=== PATIENT | male | born 1980 | race African-American/Black ===

== ENCOUNTER 2024-02-01 16:09 | Outpatient (BNV) | payer OTHER, SELFPAY | END 2024-02-01 18:30 | PROVIDERS: Admitting Provider Psychiatry & Neurology Psychiatry; Visit Provider Internal Medicine Cardiovascular Disease | DX: Z51.81 Encounter for therapeutic drug level monitoring (principal) | CPT/HCPCS: 93010 ==

== ENCOUNTER 2024-02-01 16:09 | Inpatient (IN) | payer OTHER, SELFPAY ==
--- NOTE | 2024-02-01 | ECG_ITS ---
Test Reason : new admit Blood Pressure : / mmHG Vent. Rate : 085 BPM Atrial Rate : 085 BPM P-R Int : 172 ms QRS Dur : 080 ms QT Int : 354 ms P-R-T Axes : 060 021 053 degrees QTc Int : 421 ms Normal sinus rhythm Normal ECG No previous ECGs available Referred By: Lian Lopez Electronically Signed By:DANI APONTE MD
[2024-02-01 16:31] VITALS: BP 157/88; PULSE 80; RESP 18; TEMP 36.8; O2SAT 100
[2024-02-01 16:52] VITALS: BMI 35.4
--- NOTE | 2024-02-01 17:16 | PC.NURSE ---
Pt previously immunized for flu this year
--- NOTE | 2024-02-01 18:25 | PC.ADMIT ---
Pt was admitted from [facility] on M3 on 02/01/24 at 1625 for treatment of SI with an attempt by overdosing on clonidine and labetalol, as well as dish detergent and bleach , on a CV. He has a prior diagnosis of schizophrenia, per report from his father, he has been medication compliant. Per report from [facility], he had a sheet tied around his neck in an attempt to hang himself. He has a history of making verbal threats towards staff and being sexually inappropriate towards female staff. He has a history of incarceration and is a registered sex offender as of 2019. At present, pt is calm and cooperative with admission process. He is currently on dialysis for end stage renal disease and goes M-W-. He presents as A&O x4, mood is depressed and affect is constricted. He currently denies SI/HI/AVH. His thought process is clear and linear, he appears to have good focus. He denies issues with appetite or sleep. He reports daily use of marijuana, and his tox screen came back positive for marijuana. He does not report any physical complaints or other medical issues. He has a permacath on his R subclavian that is intact, with no signs of infection, and dressing was last changed on 01/27/24 by [facility]. He also has a fistula in his L upper arm which is no longer in use. Pt was placed on a 1:1 with male staff only due to recent SI with access and due to inappropriateness with females.
[2024-02-01 20:10] VITALS: BP 162/83; PULSE 80; RESP 18; TEMP 36.9; O2SAT 99
[2024-02-01] MEDS: OLANZapine 5 MG TABLET PO (20:47)
[2024-02-01] MEDS: Sevelamer Carbonate Powder 800 MG POWD.PACK 2400 MG PO (20:47)
[2024-02-01] MEDS: Labetalol HCL 100 MG TABLET PO (20:48)
[2024-02-01] MEDS: cloNIDine HCL 0.1 MG TABLET 0.3 MG PO (20:48)
--- NOTE | 2024-02-01 20:48 | P.EN_ITS ---
Event Note Date of Service: 02/01/24 Event Note: Patient accepted in transfer from [facility]. Doc to doc completed records reviewed. The patient is status post suicide attempt swallowing bleach no clear GI consequences from this the patient has been eating. The patient has end-stage renal disease has been receiving dialysis through port not fistula labs ekg unremarkable. The patient has been cooperative with dialysis at [facility] Patient has reported history of psychosis and paranoia question PTSD status post severe suicide attempt requires inpatient psychiatric care. Prior to transfer I did contact Nephrology who states they are able to provide dialysis care as required Time Spent With Patient Time: Total time managing care of this patient today ____ minutes.
[2024-02-02 07:45] VITALS: BP 165/91; PULSE 83; RESP 14; TEMP 36.8; O2SAT 98
[2024-02-02] MEDS: Labetalol HCL 100 MG TABLET PO ×3 (08:23→22:39)
[2024-02-02] MEDS: OLANZapine 5 MG TABLET PO ×3 (08:23→22:40)
[2024-02-02] MEDS: Valsartan 160 MG TABLET PO (08:23)
[2024-02-02] MEDS: Sevelamer Carbonate Powder 800 MG POWD.PACK 2400 MG PO ×2 (08:23→18:51)
[2024-02-02] MEDS: VerapamiL HCL SR 180 MG TABLET.ER PO (08:23)
[2024-02-02] MEDS: cloNIDine HCL 0.1 MG TABLET PO ×2 (08:23→22:28)
[2024-02-02] MEDS: Cinacalcet HCl 30 MG TABLET PO (09:13)
--- NOTE | 2024-02-02 11:34 | P.HPPS_ITS ---
HPI Date of Service: 02/02/24 Chief Complaint: Schizophrenia, unspecified Sources of Information: patient interviewed and chart reviewed HPI Subjective Notes: Conditional Voluntary Narrative: Direct admission from [facility] in [place]. As per Dr. Redd note 02/01/24: Patient accepted in transfer from [facility]. Doc to doc completed records reviewed. The patient is status post suicide attempt swallowing bleach no clear GI consequences from this the patient has been eating. The patient has end-stage renal disease has been receiving dialysis through port not fistula labs ekg unremarkable. The patient has been cooperative with dialysis at [facility] Patient has reported history of psychosis and paranoia question PTSD status post severe suicide attempt requires inpatient psychiatric care. Prior to transfer I did contact Nephrology who states they are able to provide dialysis care as required Paperwork from [facility] shows patient presented to the emergency room through 911 on 01/15/2024. There were 3 different accounts from patient, once stating he took labetalol and detergent ingestion, a 2nd stating clonidine and bleach ingestion, then a 3rd stating he drank alcohol and somebody had hypnotized him. Collateral from father at [facility], reported patient had relapsed with alcohol around 6 months ago, off medications, more paranoid, believes he may have called 911 himself. Patient was on the medical floor and received routine scheduled dialysis which she has been on for the last 3 years, while awaiting inpatient psychiatry bed. Olanzapine was increased during that medical floor stay from 10 mg daily to a total daily dose of 20 mg. Patient reports to senior copywriter today that he has been feeling depressed for years and that things got worse since 's Brenda when he started smoking more marijuana and getting paranoid. Reported prior to admission low energy, no motivation, poor sleep, hopelessness. Reported that he overdosed on pills and cleaning supplies impulsively and also drank some alcohol. Reported that he told a friend who called 911. is adamant it was not a suicide attempt and was self harm/cry for help. reports does feel paranoid at times that family members are trying to hurt him and also hallucinates hearing rap music and things that are normally on a television. Reports that Zyprexa is helpful and these have become less intense. Happy regarding current medication regimen of Zyprexa 5 mg morning and 50 mg at bedtime. Reluctant to make any current changes. Past Psychiatric History: Diagnosis of schizoaffective disorder. Unclear if there are any hypomanic episodes in the past. Does describe clear depressive episodes. Auditory hallucinations and paranoia. Reports history of overdosing on medications but describes them as more of a cry for help, rather than suicide attempts. Prior to this overdose, the last was in 2012 in front of his children's mother. Reports last inpatient episode was around 3 years ago when he was informed around the need for dialysis in the context of polycystic kidney disease. Cannot remember medication regimen in the past. Unclear recent treaters. Never been on clozapine or ECT. Medical Evaluation Reviewed: Hospitalist Dalia Pending [facility] Narrative: Polycystic kidney disease and dialysis Wednesdays and Fridays at the [facility] on [address] [place] [address] in [facility] on Social History: lives alone in [place]. High school grad. 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 has been living alone since September 28 in a 1 bedroom apartment. Prior to that was in Community supportive housing for 3 years. in 2016 after 5 years. Has 2 children that are twins age 12 and unsure where they currently are but thinks he might be a new hamster and had last contact when their age 4. No active legal issues. Was on probation from 2009 through 2012 for possession of drugs and incarcerated 2003 through 2005 for assault and battery with a deadly weapon. Substance History: Alcohol use disorder. Diagnostics Vital Signs (24Hr): Vital Signs - 24 hr 02/01/24 16:31 02/01/24 20:10 02/02/24 07:45 Temperature 98.3 F 98.5 F 98.3 F Pulse Rate 80 80 83 Respiratory Rate 18 18 14 Blood Pressure 157/88 H 162/83 H 165/91 H Pulse Oximetry 100 99 98 Oxygen Delivery Method Room Air Room Air Room Air BMI result Body Mass Index 35.4 Labs 02/02/24 11:12 Meds/Allergies Meds Home Medications ?Medication ?Instructions ?Recorded ?Confirmed ?Type cinacalcet 1 tab PO DAILY 02/01/24 02/01/24 History clonidine HCl 0.3 mg tablet 0.3 mg PO BID 02/01/24 02/01/24 History epoetin ceci-epbx 10,000 unit/mL 10,000 unit subcut 3XW 02/01/24 02/01/24 History injection solution irbesartan 300 mg tablet 300 mg PO DAILY 02/01/24 02/01/24 History labetalol 100 mg tablet 100 mg PO BID 02/01/24 02/01/24 History olanzapine 5 mg tablet 5 mg PO BID 02/01/24 02/01/24 History sevelamer carbonate 2.4 gram oral 2.4 g PO TID 02/01/24 02/01/24 History powder packet (Renvela) verapamil 180 mg tablet,extended 180 mg PO DAILY 02/01/24 02/01/24 History release Allergies Allergies Allergy/AdvReac Type Severity Reaction Status Date / Time fish derived [fish] Allergy Unknown Verified 02/01/24 16:49 haloperidol [From Haldol] Allergy Unknown Verified 02/01/24 16:49 peanut Allergy Unknown Verified 02/01/24 16:49 promethazine [From Phenergan] Allergy Unknown Verified 02/01/24 16:49 shellfish derived Allergy Unknown Verified 02/01/24 16:49 Mental Status Exam Mental Status Exam Narrative: Had a towel over his head. He was slightly guarded and at times oddly interacting. Self-care okay. Organized. Endorses feeling depressed but getting better. Denied current SI. No HI. No agitation. Endorsed intermittent paranoia and hallucinations, that are non command and less intense than a couple weeks ago. Insight judgment fair Assessment & Plan Assessment & Plan (1) Schizoaffective disorder: Status: Acute Code(s): F25.9 - Schizoaffective disorder, unspecified Plan Direct admission from a medical floor at [facility] in [facility], following unclear overdose on 01/15/2024. Established dialysis patient on Wednesdays and Fridays. It appears has been off psychotropic medications as per collateral from paperwork. Does appear to be benefiting from adjustment in olanzapine dose to 5 mg morning and 15 mg at bedtime. Given same will not make any changes and patient also prefers this. We will continue dialysis on Wednesdays and Fridays. Patient educated on: diagnosis and medication risk/benefits Reason for continued inpatient stay Substantial Risk for: harm to self Statement Statement: I have reviewed the history and physical and performed a pertinent examination on my patient. No changes have occurred unless specified. If the History and Physical was not performed prior to admission, the Hospitalist's service will be consulted for completing the admission physical. Time Spent With Patient Time: Total time managing care of this patient today ____ minutes.
[2024-02-02] MEDS: Nicotine Polacrilex 2 MG GUM 4 MG BUCCAL ×3 (11:42→22:49)
[2024-02-02 12:16] LABS: Alanine Aminotransferase 11 U/L (0-40); Albumin Level 4.3 g/dL (3.5-5.0); Alkaline Phosphatase 81 U/L (39-117); Anion Gap 21 (12-20); Aspartate Amino Transferase 19 U/L (5-37); Bilirubin Total 0.4 mg/dL (0.0-1.0); Blood Urea Nitrogen 48 mg/dL (9-16); Calcium 9.5 mg/dL (8.4-10.2); Carbon Dioxide 26 mmol/L (22-29); Chloride 93 mmol/L (96-108); Cholesterol 175 mg/dL (<200); Creatinine Clr Calc Pharmacy 9.3; Estimated Glomerular Filt Rate 4; Glucose Fasting 108 mg/dL (60-99); HDL Cholesterol 34 mg/dL (>40); LDL Cholesterol Calculated 116 mg/dL (<100); Potassium 5.8 mmol/L (3.3-5.1); Sodium 134 mmol/L (135-145); Total Protein 7.4 g/dL (6.5-8.0); Triglycerides 129 mg/dL (<150)
[2024-02-02] MEDS: Cinacalcet HCl 30 MG TABLET 60 MG PO (13:30)
--- NOTE | 2024-02-02 13:57 | HO.PM.IMCN ---
History of Present Illness Data of Consult Service Date: 02/02/24 Primary Care Provider: Unknown Physician HPI Reason for consult: Admission H&P Pt is a 43-year-old male with a PMH significant for?HTN, ESRD on hemodialysis M/W/F, schizoaffective disorder, and depression who is admitted to M3 psychiatry unit for increasing depression with SI attempt at overdose on clonidine, labetalol, wet washer machine detergent, and bleach. Medical consult for admission H&P. Patient calm and cooperative at time of interview. Patient often displaced tangential thought, but is mostly easy to redirect. Patient expresses concerns that dialysis ?needs to be done right?; appears very concerned that the ?correct amount of fluid be take off him. Patient denies any significant PMH other than dialysis and HTN. Currently denies any acute medical complaints, saying that he feels ?okay?. Denies lower leg edema or abdominal swelling. No chest pain/pressure, palpitations. Denies fever, chills, nausea, vomiting, abdominal pain. No headache or acute vision changes. Review of Systems Review of Systems: Patient has no acute medical complaints at this time [facility] Medical History (Updated 02/02/24 @ 17:46 by SUZY Garcia) HTN (hypertension) End-stage renal disease on hemodialysis Social History Household Members: None Housing: Apartment Do you presently have visiting nurse or other home services: No Patient Tobacco Use Status: Former Tobacco user Quit Date: 01/13/24 Tobacco use type: Cigarette Smoked in Last 30 Days: Yes e-Cigarette/Vaping Use: Never Used Patient Interested in Nicotine Replacement: No Patient Given Instructions on How to Stop Smoking: No Second Hand Smoke Exposure: No Use of substances other than those prescribed or required for medical reasons: Yes Substance Use Type: Marijuana Substance Use Frequency: Chronic Longstanding Last Used Substance: Just Prior to Admission Currently Displaying Signs/Symptoms of Drug Intoxication Withdrawal: No Any prior treatment program specific to substance use: No Have you been hit, kicked, punched, or otherwise hurt by someone within the past year? If so, by whom?: No Do you feel safe in your current relationship?: No Current Relationship Is there a partner from a previous relationship who is making you feel unsafe now?: No Are you made to feel afraid or neglected: No Advance Directives: No Advance Directives Information Provided: No Do you have thoughts of harming others: None Do you have a plan to hurt others: No Plan Recently lost weight without trying: No How much weight loss: Not applicable Eating poorly because of decreased appetite: No Nutrition screen score: 0 Nutrition Risks: No Nutritional Risk Poor oral hygiene: No Meds Allergies Allergy/AdvReac Type Severity Reaction Status Date / Time fish derived [fish] Allergy Unknown Verified 02/01/24 16:49 haloperidol [From Haldol] Allergy Unknown Verified 02/01/24 16:49 peanut Allergy Unknown Verified 02/01/24 16:49 promethazine [From Phenergan] Allergy Unknown Verified 02/01/24 16:49 shellfish derived Allergy Unknown Verified 02/01/24 16:49 Active Medications: Current Medications Acetaminophen (Acetaminophen 325 Mg Tablet) 650 mg PO Q6H PRN PRN Reason: Headache/Pain Mild Scale (1-3) Al Hydroxide/Mg Hydroxide (Magnesium Hydrox/Alum Hydrox 30 Ml Oral.Susp) 30 ml PO Q6H PRN PRN Reason: Heartburn/Nausea Cinacalcet (Cinacalcet Hcl 30 Mg Tablet) 90 mg PO DAILY [facility] Clonidine HCl (Clonidine Hcl 0.1 Mg Tablet) 0.1 mg PO BID [facility]; Protocol Last Admin: 02/02/24 08:23 Dose: 0.1 mg Epoetin Jorge Luis (Epoetin Jorge Luis 10,000 Unit/Ml Vial) 10,000 unit SUBCUT MoWeFr@0900 [facility] Hydroxyzine HCl (Hydroxyzine Hcl 25 Mg Tablet) 25 mg PO Q6H PRN PRN Reason: Anxiety Labetalol HCl (Labetalol Hcl 100 Mg Tablet) 100 mg PO BID [facility]; Protocol Last Admin: 02/02/24 08:23 Dose: 100 mg Magnesium Hydroxide (Milk Of Magnesia 30 Ml Oral.Susp) 30 ml PO DAILY PRN PRN Reason: Constipation Nicotine Polacrilex (Nicotine Polacrilex 2 Mg Gum) 4 mg BUCCAL Q2H PRN PRN Reason: Nicotine Cravings Last Admin: 02/02/24 11:42 Dose: 4 mg Olanzapine (Olanzapine 5 Mg Tablet) 5 mg PO BID [facility] Last Admin: 02/02/24 08:23 Dose: 5 mg Sevelamer Carbonate (Sevelamer Carbonate Powder 800 Mg Powd.Pack) 2,400 mg PO TID [facility] Last Admin: 02/02/24 08:23 Dose: 2,400 mg Trazodone HCl (Trazodone Hcl 50 Mg Tablet) 50 mg PO BEDTIME MRX1 PRN PRN Reason: Insomnia Valsartan (Valsartan 160 Mg Tablet) 160 mg PO DAILY [facility] Last Admin: 02/02/24 08:23 Dose: 160 mg Verapamil HCl (Verapamil Hcl Sr 180 Mg Tablet.Er) 180 mg PO DAILY [facility]; Protocol Last Admin: 02/02/24 08:23 Dose: 180 mg Home Medications ?Medication ?Instructions ?Recorded ?Confirmed ?Last Taken ?Type cinacalcet 1 tab PO DAILY 02/01/24 02/01/24 Unknown History clonidine HCl 0.3 mg tablet 0.3 mg PO BID 02/01/24 02/01/24 Unknown History epoetin jorge luis-epbx 10,000 unit/mL 10,000 unit subcut 3XW 02/01/24 02/01/24 Unknown History injection solution irbesartan 300 mg tablet 300 mg PO DAILY 02/01/24 02/01/24 Unknown History labetalol 100 mg tablet 100 mg PO BID 02/01/24 02/01/24 Unknown History olanzapine 5 mg tablet 5 mg PO BID 02/01/24 02/01/24 Unknown History sevelamer carbonate 2.4 gram oral 2.4 g PO TID 02/01/24 02/01/24 Unknown History powder packet (Renvela) verapamil 180 mg tablet,extended 180 mg PO DAILY 02/01/24 02/01/24 Unknown History release Physical Exam Vital Signs and Narrative: Vital Signs: Last Vital Signs Temp 98.3 F 02/02/24 07:45 Pulse 83 02/02/24 07:45 Resp 14 02/02/24 07:45 BP 165/91 H 02/02/24 07:45 Pulse Ox 98 02/02/24 07:45 O2 Del Method Room Air 02/02/24 07:45 BMI result Body Mass Index 35.4 General: AOx3, no acute distress Resp: CTA bilaterally CVS: S1, S2, RRR GI: +BS, NT, no distention Skin: Warm, dry Neuro: Cranial nerves II-XII grossly intact bilaterally. Motor grossly intact bilaterally Extremities: No edema Results Labs 02/02/24 11:12 Labs: Laboratory Results - last 24 hr 02/02/24 11:12 Anion Gap 21 H Estim Creat Clear Calc 9.3 Estimated GFR 4 Fasting Glucose 108 H Calcium 9.5 Total Bilirubin 0.4 AST 19 ALT 11 Alkaline Phosphatase 81 Total Protein 7.4 Albumin 4.3 Triglycerides 129 Cholesterol 175 LDL Cholesterol, Calc 116 H HDL Cholesterol 34 L Assessment and Plan (1) Medical clearance for psychiatric admission: Status: Acute Plan Pt is a 43-year-old male with a PMH significant for?HTN, ESRD on hemodialysis M/W/F, schizoaffective disorder, and depression who is admitted to M3 psychiatry unit for increasing depression with SI attempt at overdose on clonidine, labetalol, wet washer machine detergent, and bleach. Medical consult for admission H&P. Mood disorder Plan as per Psychiatry HTN Continue irbesartan, labetalol, verapamil ESRD on HD M/W/F Continue cinacalcet, Renvela, epoetin Nephrology consult Hyperkalmemia Potassium 5.8 Will give Lokelma 10mg today and tomorrow Thank you for allowing us to participate in the care of this patient. Signing off at this time. Please re-consult if any acute complaints or issues arise.
[2024-02-02 20:30] VITALS: RESP 18
--- NOTE | 2024-02-02 21:30 | PM.EVENT ---
Event Note Date of Service: 02/02/24 Time Spent With Patient Time: Thank you for the consult. All EMR details reviewed. Due HD Sunday. HD ordered for Sunday. Shall closely follow up during hospital stay. Wali Marcial MD
[2024-02-02] MEDS: guaiFENesin 100 MG/5 ML LIQUID PO (22:39)
--- NOTE | 2024-02-03 05:45 | PC.NURSE ---
R subclavian perma cath-late evening patient removed dressing and was pulling at sutures that secure catheter to chest. one suture remains. focused on ''pulling out the catheter, I've done it before'' required distraction to prevent the pulling of the tubing. patient also making delusional statement about his family making a ''time machine'' that his uncle and father were stealing his belongings at his home because he could ''read their minds'' it was difficult to get patient to allow a dressing to be place, non central dsd applied, but was able to cover area to prevent further damage. central sterile line dsd kit obtained as well as pressure dsd in the event patient did pull line. continued with focus about line. observer remains at side.
[2024-02-03 08:20] VITALS: BP 179/101; PULSE 87; RESP 14; TEMP 36.8; O2SAT 95
[2024-02-03] MEDS: Nicotine Polacrilex 2 MG GUM 4 MG BUCCAL ×3 (08:20→23:54)
[2024-02-03] MEDS: Valsartan 160 MG TABLET PO (09:11)
[2024-02-03] MEDS: VerapamiL HCL SR 180 MG TABLET.ER PO (09:11)
[2024-02-03] MEDS: Labetalol HCL 100 MG TABLET PO ×2 (09:11→20:51)
[2024-02-03] MEDS: OLANZapine 5 MG TABLET PO ×2 (09:11→13:35)
[2024-02-03] MEDS: Cinacalcet HCl 30 MG TABLET 90 MG PO (09:11)
[2024-02-03] MEDS: cloNIDine HCL 0.1 MG TABLET PO ×2 (09:11→20:51)
[2024-02-03] MEDS: Sevelamer Carbonate Powder 800 MG POWD.PACK 2400 MG PO (09:15)
[2024-02-03 10:57] VITALS: BP 178/84; PULSE 95
--- NOTE | 2024-02-03 12:08 | P.PNPSI_ITS ---
Subjective Subjective Date of Service: 02/03/24 Reason For Visit: Schizophrenia, unspecified Subjective Notes: Conditional Voluntary Medical Problems Affecting Mental Status: No Interim History: Met with patient. Discussed with Nursing. Partial adherence around medical medications such as labetalol. Has appeared more paranoid as the day went on yesterday and last night. This morning has been self dialogue going. Slept poorly last night. Aware dialysis scheduled for tomorrow. We did discuss medical medications so to help with things such as blood pressure etc. and agreed to take same, which he did. Also agreed to olanzapine being increased to 10 mg daily and 15 mg at bedtime. Medication Compliance: Intermittent Side effects from medications: No Attending Groups: No Review of Systems Acute medical concerns: No Review of Systems Review of Systems Patient has no acute medical complaints at this time Mental Status Exam Mental Status Exam Narrative: He was guarded and at times oddly interacting. Self-care okay. Organized. Endorses feeling depressed. Denied current SI. No HI. No agitation. Endorsed intermittent paranoia and hallucination. Insight judgment fair Diagnostics Vital Signs (24Hr): Vital Signs - 24 hr 02/02/24 20:30 02/03/24 08:20 02/03/24 10:57 Temperature 98.2 F Pulse Rate 87 95 Respiratory Rate 18 14 Blood Pressure 179/101 H 178/84 H Pulse Oximetry 95 Oxygen Delivery Method Room Air BMI result Body Mass Index 35.4 Labs 02/02/24 11:12 Labs: Laboratory Results - last 48 hr 02/02/24 11:12 Sodium 134 L Potassium 5.8 H Chloride 93 L Carbon Dioxide 26 Anion Gap 21 H BUN 48 H Creatinine 13.34 H* Estim Creat Clear Calc 9.3 Estimated GFR 4 Fasting Glucose 108 H Calcium 9.5 Total Bilirubin 0.4 AST 19 ALT 11 Alkaline Phosphatase 81 Total Protein 7.4 Albumin 4.3 Triglycerides 129 Cholesterol 175 LDL Cholesterol, Calc 116 H HDL Cholesterol 34 L Medications Medications Current Medications Acetaminophen (Acetaminophen 325 Mg Tablet) 650 mg PO Q6H PRN PRN Reason: Headache/Pain Mild Scale (1-3) Al Hydroxide/Mg Hydroxide (Magnesium Hydrox/Alum Hydrox 30 Ml Oral.Susp) 30 ml PO Q6H PRN PRN Reason: Heartburn/Nausea Cinacalcet (Cinacalcet Hcl 30 Mg Tablet) 90 mg PO DAILY [facility] Last Admin: 02/03/24 09:11 Dose: 90 mg Clonidine HCl (Clonidine Hcl 0.1 Mg Tablet) 0.1 mg PO BID [facility]; Protocol Last Admin: 02/03/24 09:11 Dose: 0.1 mg Epoetin Jorge Luis (Epoetin Jorge Luis 10,000 Unit/Ml Vial) 10,000 unit SUBCUT MoWeFr@0900 [facility] Guaifenesin (Guaifenesin 100 Mg/5 Ml Liquid) 5 ml PO Q6H PRN PRN Reason: Cough Last Admin: 02/02/24 22:39 Dose: 5 ml Hydroxyzine HCl (Hydroxyzine Hcl 25 Mg Tablet) 25 mg PO Q6H PRN PRN Reason: Anxiety Labetalol HCl (Labetalol Hcl 100 Mg Tablet) 100 mg PO BID [facility]; Protocol Last Admin: 02/03/24 09:11 Dose: 100 mg Lidocaine HCl (Lidocaine Hcl 1 % Mpf 2 Ml Vial) 0.5 ml SUBCUT MOWEFR@1645 [facility] Magnesium Hydroxide (Milk Of Magnesia 30 Ml Oral.Susp) 30 ml PO DAILY PRN PRN Reason: Constipation Nicotine Polacrilex (Nicotine Polacrilex 2 Mg Gum) 4 mg BUCCAL Q2H PRN PRN Reason: Nicotine Cravings Last Admin: 02/03/24 08:20 Dose: 4 mg Olanzapine (Olanzapine 5 Mg Tablet) 5 mg PO BID [facility] Last Admin: 02/03/24 09:11 Dose: 5 mg Sevelamer Carbonate (Sevelamer Carbonate Powder 800 Mg Powd.Pack) 2,400 mg PO TIDWM [facility] Last Admin: 02/03/24 09:15 Dose: 2,400 mg Sodium Zirconium Cyclosilicate (Sodium Zirconium Cyclosilicate 10 Gm Powd.Pack) 10 gm PO DAILY@2200 [facility] Stop: 02/04/24 21:59 Last Admin: 02/02/24 20:23 Dose: Not Given Trazodone HCl (Trazodone Hcl 50 Mg Tablet) 50 mg PO BEDTIME MRX1 PRN PRN Reason: Insomnia Valsartan (Valsartan 160 Mg Tablet) 160 mg PO DAILY [facility] Last Admin: 02/03/24 09:11 Dose: 160 mg Verapamil HCl (Verapamil Hcl Sr 180 Mg Tablet.Er) 180 mg PO DAILY [facility]; Protocol Last Admin: 02/03/24 09:11 Dose: 180 mg Allergies Allergies Allergy/AdvReac Type Severity Reaction Status Date / Time fish derived [fish] Allergy Unknown Verified 02/01/24 16:49 haloperidol [From Haldol] Allergy Unknown Verified 02/01/24 16:49 peanut Allergy Unknown Verified 02/01/24 16:49 promethazine [From Phenergan] Allergy Unknown Verified 02/01/24 16:49 shellfish derived Allergy Unknown Verified 02/01/24 16:49 Assessment & Plan Assessment & Plan (1) Schizoaffective disorder: Status: Acute Code(s): F25.9 - Schizoaffective disorder, unspecified (2) End stage renal disease on dialysis: Status: Acute Code(s): N18.6 - End stage renal disease; Z99.2 - Dependence on renal dialysis Plan Direct admission from a medical floor at [facility] in [facility], following unclear overdose on 01/15/2024. Established dialysis patient on Wednesdays and Fridays. It appears has been off psychotropic medications as per collateral from paperwork. Does appear to be benefiting from adjustment in olanzapine dose to 5 mg morning and 15 mg at bedtime. Given same will not make any changes and patient also prefers this. We will continue dialysis on Wednesdays and Fridays. 02/02: increase olanzapine to 10mg am and maintain 15g bedtime Reason for continued inpatient stay Substantial Risk for: inability to function Time Spent With Patient Time: Total time managing care of this patient today ____ minutes.
[2024-02-03 20:45] VITALS: BP 158/83; PULSE 78; RESP 18; TEMP 35.9; O2SAT 100
[2024-02-03] MEDS: OLANZapine 7.5 MG TABLET 15 MG PO (20:51)
[2024-02-04 06:00] VITALS: BP 161/83; PULSE 78; RESP 18
[2024-02-04] MEDS: Nicotine Polacrilex 2 MG GUM 4 MG BUCCAL ×3 (07:02→18:50)
[2024-02-04 07:53] VITALS: BP 148/64; PULSE 79; RESP 16; TEMP 36.7; O2SAT 99
--- NOTE | 2024-02-04 08:53 | P.PNPSI_ITS ---
Subjective Subjective Date of Service: 02/04/24 Reason For Visit: Schizophrenia, unspecified Subjective Notes: Conditional Voluntary Interim History: Reviewed with Dr. Redd. Pt continues on 1:1 safety checks. Pt received dialysis today. Pt reports feeling depressed ; pt stated, I overdosed on cleaning products because I miss my kids. It's been a while since I've seen them. I was taking Zyprexa before but then I started self medicating. I want to stay alive for my kids and the rest of my family . pt denies SI/HI/VH/AH. Medication Compliance: Yes Side effects from medications: No Review of Systems Constitutional: Reports as per HPI Eyes: Reports as per HPI Reports as per HPI Cardiovascular: Reports as per HPI Respiratory: Reports as per HPI Gastrointestinal: Reports as per HPI Genitourinary: Reports as per HPI Musculoskeletal: Reports as per HPI Skin/Breast: Reports as per HPI Reports as per HPI Psychiatric: Reports as per HPI Endocrine: Reports as per HPI Hematologic/Lymphatic: Reports as per HPI Allergic/Immunologic: Reports as per HPI Mental Status Exam Mental Status Exam Narrative: Pt is alert and oriented; behavior is cooperative and calm; mood is described as depressed ; eye contact appropriate; Speech is normal rate, volume and prosody and not pressured; thought process is organized; Thought content is on tx; denies SI/HI/VH/AH. Diagnostics Vital Signs (24Hr): Vital Signs - 24 hr 02/03/24 10:57 02/03/24 20:45 02/04/24 06:00 Temperature 96.7 F L Pulse Rate 95 78 78 Respiratory Rate 18 18 Blood Pressure 178/84 H 158/83 H 161/83 H Pulse Oximetry 100 Oxygen Delivery Method Room Air 02/04/24 07:53 Temperature 98.1 F Pulse Rate 79 Respiratory Rate 16 Blood Pressure 148/64 H Pulse Oximetry 99 Oxygen Delivery Method Room Air BMI result Body Mass Index 35.4 Labs 02/02/24 11:12 Labs: Laboratory Results - last 48 hr 02/02/24 11:12 Sodium 134 L Potassium 5.8 H Chloride 93 L Carbon Dioxide 26 Anion Gap 21 H BUN 48 H Creatinine 13.34 H* Estim Creat Clear Calc 9.3 Estimated GFR 4 Fasting Glucose 108 H Calcium 9.5 Total Bilirubin 0.4 AST 19 ALT 11 Alkaline Phosphatase 81 Total Protein 7.4 Albumin 4.3 Triglycerides 129 Cholesterol 175 LDL Cholesterol, Calc 116 H HDL Cholesterol 34 L Medications Medications Current Medications Acetaminophen (Acetaminophen 325 Mg Tablet) 650 mg PO Q6H PRN PRN Reason: Headache/Pain Mild Scale (1-3) Al Hydroxide/Mg Hydroxide (Magnesium Hydrox/Alum Hydrox 30 Ml Oral.Susp) 30 ml PO Q6H PRN PRN Reason: Heartburn/Nausea Cinacalcet (Cinacalcet Hcl 30 Mg Tablet) 90 mg PO DAILY [facility] Last Admin: 02/03/24 09:11 Dose: 90 mg Clonidine HCl (Clonidine Hcl 0.1 Mg Tablet) 0.1 mg PO BID [facility]; Protocol Last Admin: 02/03/24 20:51 Dose: 0.1 mg Epoetin Jorge Luis (Epoetin Jorge Luis 10,000 Unit/Ml Vial) 10,000 unit SUBCUT MoWeFr@0900 [facility] Guaifenesin (Guaifenesin 100 Mg/5 Ml Liquid) 5 ml PO Q6H PRN PRN Reason: Cough Last Admin: 02/02/24 22:39 Dose: 5 ml Hydroxyzine HCl (Hydroxyzine Hcl 25 Mg Tablet) 25 mg PO Q6H PRN PRN Reason: Anxiety Labetalol HCl (Labetalol Hcl 100 Mg Tablet) 100 mg PO BID [facility]; Protocol Last Admin: 02/03/24 20:51 Dose: 100 mg Lidocaine HCl (Lidocaine Hcl 1 % Mpf 2 Ml Vial) 0.5 ml SUBCUT MOWEFR@1645 [facility] Magnesium Hydroxide (Milk Of Magnesia 30 Ml Oral.Susp) 30 ml PO DAILY PRN PRN Reason: Constipation Nicotine Polacrilex (Nicotine Polacrilex 2 Mg Gum) 4 mg BUCCAL Q2H PRN PRN Reason: Nicotine Cravings Last Admin: 02/04/24 07:02 Dose: 4 mg Olanzapine (Olanzapine 10 Mg Tablet) 10 mg PO DAILY [facility] Olanzapine (Olanzapine 7.5 Mg Tablet) 15 mg PO BEDTIME [facility] Last Admin: 02/03/24 20:51 Dose: 15 mg Sevelamer Carbonate (Sevelamer Carbonate Powder 800 Mg Powd.Pack) 2,400 mg PO TIDWM [facility] Last Admin: 02/03/24 18:13 Dose: Not Given Sodium Zirconium Cyclosilicate (Sodium Zirconium Cyclosilicate 10 Gm Powd.Pack) 10 gm PO DAILY@2200 [facility] Stop: 02/04/24 21:59 Last Admin: 02/03/24 21:48 Dose: Not Given Trazodone HCl (Trazodone Hcl 50 Mg Tablet) 50 mg PO BEDTIME MRX1 PRN PRN Reason: Insomnia Valsartan (Valsartan 160 Mg Tablet) 160 mg PO DAILY [facility] Last Admin: 02/03/24 09:11 Dose: 160 mg Verapamil HCl (Verapamil Hcl Sr 180 Mg Tablet.Er) 180 mg PO DAILY [facility]; Protocol Last Admin: 02/03/24 09:11 Dose: 180 mg Allergies Allergies Allergy/AdvReac Type Severity Reaction Status Date / Time fish derived [fish] Allergy Unknown Verified 02/01/24 16:49 haloperidol [From Haldol] Allergy Unknown Verified 02/01/24 16:49 peanut Allergy Unknown Verified 02/01/24 16:49 promethazine [From Phenergan] Allergy Unknown Verified 02/01/24 16:49 shellfish derived Allergy Unknown Verified 02/01/24 16:49 Assessment & Plan Assessment & Plan (1) Schizoaffective disorder: Status: Acute Code(s): F25.9 - Schizoaffective disorder, unspecified (2) End stage renal disease on dialysis: Status: Acute Code(s): N18.6 - End stage renal disease; Z99.2 - Dependence on renal dialysis Plan Direct admission from a medical floor at [facility] in [facility], following unclear overdose on 01/15/2024. Established dialysis patient on Wednesdays and Fridays. It appears has been off psychotropic medications as per collateral from paperwork. Does appear to be benefiting from adjustment in olanzapine dose to 5 mg morning and 15 mg at bedtime. Given same will not make any changes and patient also prefers this. We will continue dialysis on Wednesdays and Fridays. 02/02: increase olanzapine to 10mg am and maintain 15g bedtime 02/03:Pt continues on 1:1 safety checks. Pt received dialysis today. Pt reports feeling depressed ; pt stated, I overdosed on cleaning products because I miss my kids. It's been a while since I've seen them. I was taking Zyprexa before but then I started self medicating. I want to stay alive for my kids and the rest of my family . pt denies SI/HI/VH/AH. Patient educated on: diagnosis and medication risk/benefits Informed Consent: understands Reason for continued inpatient stay Substantial Risk for: med/psych decompensation Time Spent With Patient Time: Total time managing care of this patient today _20___ minutes.
--- NOTE | 2024-02-04 10:21 | P.CONNP_ITS ---
History of Present Illness Reason for Consult Consult date: 02/04/24 Chief Complaint Chief complaint: Schizophrenia, unspecified History of Present Illness Narrative: 43-year-old man with end stage renal disease due to polycystic kidney disease Usually gets dialysis at at [facility] on Fridays He is due for dialysis today. He has been admitted to the psychiatric floor for psychiatric issues Review of Systems Constitutional: Denies anorexia, Denies fever(s) and Denies weakness Eyes: Denies blurry vision Cardiovascular: Denies no additional cardiovascular complaints and Denies dyspnea Respiratory: Reports no additional respiratory complaints, Reports cough and Denies dyspnea Gastrointestinal: Denies melena and Denies diarrhea Genitourinary: Denies hematuria Musculoskeletal: Denies tingling Skin/Breast: Denies rash Denies focal weakness, Denies tingling, Denies tremor(s) and Denies weakness PMFSH Past Medical History Medical History (Updated 02/03/24 @ 15:42 by Josh Busch MD) HTN (hypertension) End-stage renal disease on hemodialysis Social History Social History Household Members: None Housing: Apartment Do you presently have visiting nurse or other home services: No Patient Tobacco Use Status: Former Tobacco user Quit Date: 01/13/24 Tobacco use type: Cigarette Smoked in Last 30 Days: Yes e-Cigarette/Vaping Use: Never Used Patient Interested in Nicotine Replacement: No Patient Given Instructions on How to Stop Smoking: No Second Hand Smoke Exposure: No Use of substances other than those prescribed or required for medical reasons: Yes Substance Use Type: Marijuana Substance Use Frequency: Chronic Longstanding Last Used Substance: Just Prior to Admission Currently Displaying Signs/Symptoms of Drug Intoxication Withdrawal: No Any prior treatment program specific to substance use: No Have you been hit, kicked, punched, or otherwise hurt by someone within the past year? If so, by whom?: No Do you feel safe in your current relationship?: No Current Relationship Is there a partner from a previous relationship who is making you feel unsafe now?: No Are you made to feel afraid or neglected: No Advance Directives: No Advance Directives Information Provided: No Do you have thoughts of harming others: None Do you have a plan to hurt others: No Plan Recently lost weight without trying: No How much weight loss: Not applicable Eating poorly because of decreased appetite: No Nutrition screen score: 0 Nutrition Risks: No Nutritional Risk Poor oral hygiene: No Meds Allergies Allergy/AdvReac Type Severity Reaction Status Date / Time fish derived [fish] Allergy Unknown Verified 02/01/24 16:49 haloperidol [From Haldol] Allergy Unknown Verified 02/01/24 16:49 peanut Allergy Unknown Verified 02/01/24 16:49 promethazine [From Phenergan] Allergy Unknown Verified 02/01/24 16:49 shellfish derived Allergy Unknown Verified 02/01/24 16:49 Active Medications: Current Medications Acetaminophen (Acetaminophen 325 Mg Tablet) 650 mg PO Q6H PRN PRN Reason: Headache/Pain Mild Scale (1-3) Al Hydroxide/Mg Hydroxide (Magnesium Hydrox/Alum Hydrox 30 Ml Oral.Susp) 30 ml PO Q6H PRN PRN Reason: Heartburn/Nausea Cinacalcet (Cinacalcet Hcl 30 Mg Tablet) 90 mg PO DAILY [facility] Last Admin: 02/03/24 09:11 Dose: 90 mg Clonidine HCl (Clonidine Hcl 0.1 Mg Tablet) 0.1 mg PO BID [facility]; Protocol Last Admin: 02/03/24 20:51 Dose: 0.1 mg Epoetin Jorge Luis (Epoetin Jorge Luis 10,000 Unit/Ml Vial) 10,000 unit SUBCUT MoWeFr@0900 [facility] Guaifenesin (Guaifenesin 100 Mg/5 Ml Liquid) 5 ml PO Q6H PRN PRN Reason: Cough Last Admin: 02/02/24 22:39 Dose: 5 ml Hydroxyzine HCl (Hydroxyzine Hcl 25 Mg Tablet) 25 mg PO Q6H PRN PRN Reason: Anxiety Labetalol HCl (Labetalol Hcl 100 Mg Tablet) 100 mg PO BID [facility]; Protocol Last Admin: 02/03/24 20:51 Dose: 100 mg Lidocaine HCl (Lidocaine Hcl 1 % Mpf 2 Ml Vial) 0.5 ml SUBCUT MOWEFR@1645 [facility] Magnesium Hydroxide (Milk Of Magnesia 30 Ml Oral.Susp) 30 ml PO DAILY PRN PRN Reason: Constipation Nicotine Polacrilex (Nicotine Polacrilex 2 Mg Gum) 4 mg BUCCAL Q2H PRN PRN Reason: Nicotine Cravings Last Admin: 02/04/24 07:02 Dose: 4 mg Olanzapine (Olanzapine 10 Mg Tablet) 10 mg PO DAILY [facility] Olanzapine (Olanzapine 7.5 Mg Tablet) 15 mg PO BEDTIME [facility] Last Admin: 02/03/24 20:51 Dose: 15 mg Sevelamer Carbonate (Sevelamer Carbonate Powder 800 Mg Powd.Pack) 2,400 mg PO TIDWM [facility] Last Admin: 02/04/24 09:48 Dose: Not Given Sodium Zirconium Cyclosilicate (Sodium Zirconium Cyclosilicate 10 Gm Powd.Pack) 10 gm PO DAILY@2200 [facility] Stop: 02/04/24 21:59 Last Admin: 02/03/24 21:48 Dose: Not Given Trazodone HCl (Trazodone Hcl 50 Mg Tablet) 50 mg PO BEDTIME MRX1 PRN PRN Reason: Insomnia Valsartan (Valsartan 160 Mg Tablet) 160 mg PO DAILY [facility] Last Admin: 02/03/24 09:11 Dose: 160 mg Verapamil HCl (Verapamil Hcl Sr 180 Mg Tablet.Er) 180 mg PO DAILY [facility]; Protocol Last Admin: 02/03/24 09:11 Dose: 180 mg Home Medications ?Medication ?Instructions ?Recorded ?Confirmed ?Last Taken ?Type cinacalcet 1 tab PO DAILY 02/01/24 02/01/24 Unknown History clonidine HCl 0.3 mg tablet 0.3 mg PO BID 02/01/24 02/01/24 Unknown History epoetin jorge luis-epbx 10,000 unit/mL 10,000 unit subcut 3XW 02/01/24 02/01/24 Unknown History injection solution irbesartan 300 mg tablet 300 mg PO DAILY 02/01/24 02/01/24 Unknown History labetalol 100 mg tablet 100 mg PO BID 02/01/24 02/01/24 Unknown History olanzapine 5 mg tablet 5 mg PO BID 02/01/24 02/01/24 Unknown History sevelamer carbonate 2.4 gram oral 2.4 g PO TID 02/01/24 02/01/24 Unknown History powder packet (Renvela) verapamil 180 mg tablet,extended 180 mg PO DAILY 02/01/24 02/01/24 Unknown History release Physical Exam Vital Signs: Last Vital Signs Temp 98.1 F 02/04/24 07:53 Pulse 79 02/04/24 07:53 Resp 16 02/04/24 07:53 BP 148/64 H 02/04/24 07:53 Pulse Ox 99 02/04/24 07:53 O2 Del Method Room Air 02/04/24 07:53 BMI result Body Mass Index 35.4 Const General: comfortable Nutritional Appearance: well nourished Orientation/consciousness: patient oriented x3 HEENT Head: No normal to inspection Mouth: moist mucous membranes Neck Neck: Yes supple and Yes no JVD Resp Auscultation: clear to auscultation bilaterally, no rales and rub present Cardio Jugular venous distension: no JVD Palpation: no palpable S3 and no palpable S4 Heart sounds: no rubs GI Palpation (GI): Soft to palpation and nontender Percussion: No Fluid wave present General: Yes no CVA tenderness Back/Spine/Pelvis Back: no CVA tenderness Skin General skin exam: no rashes or lesions noted Neuro General: patient oriented x3 Extrem General: Yes no pedal edema and No clubbing Results Lab Results 02/02/24 11:12 Lab results: Chemistry 02/02/24 11:12 Sodium 134 L Potassium 5.8 H Carbon Dioxide 26 BUN 48 H Creatinine 13.34 H* Calcium 9.5 Assessment and Plan (1) End stage renal disease on dialysis: Status: Acute Plan 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 Clinically no signs or symptoms of uremia Fluid status seems acceptable. We will arrange for dialysis on Fridays and optimize fluids. Will Follow hemoglobin and administer Epogen as per protocol. Check CBC Mild hyperkalemia in the setting end stage renal disease Keep him on low-potassium diet Will use low potassium dialysate during dialysis Secondary hyperparathyroidism Continue cinacalcet We will check calcium and phosphorus along with PTH. Procedures Date of Service Date of Service: 02/04/24
[2024-02-04 14:05] VITALS: BP 181/96; PULSE 89
[2024-02-04] MEDS: Valsartan 160 MG TABLET PO (14:08)
[2024-02-04] MEDS: VerapamiL HCL SR 180 MG TABLET.ER PO (14:08)
[2024-02-04] MEDS: Cinacalcet HCl 30 MG TABLET 90 MG PO (14:08)
[2024-02-04] MEDS: OLANZapine 10 MG TABLET PO (14:08)
[2024-02-04] MEDS: Labetalol HCL 100 MG TABLET PO ×2 (14:08→20:46)
[2024-02-04] MEDS: cloNIDine HCL 0.1 MG TABLET PO ×2 (14:08→20:46)
[2024-02-04 20:35] VITALS: BP 160/93; PULSE 87; RESP 17; TEMP 36.8; O2SAT 97
[2024-02-04] MEDS: OLANZapine 7.5 MG TABLET 15 MG PO (20:45)
[2024-02-05] MEDS: Nicotine Polacrilex 2 MG GUM 4 MG BUCCAL ×6 (00:24→21:55)
[2024-02-05 06:00] VITALS: BP 179/95; PULSE 80; RESP 18; TEMP 37.1; O2SAT 98
[2024-02-05] MEDS: cloNIDine HCL 0.1 MG TABLET PO ×2 (08:50→21:55)
[2024-02-05] MEDS: Labetalol HCL 100 MG TABLET PO ×2 (08:50→21:55)
[2024-02-05] MEDS: hydrOXYzine HCL 25 MG TABLET PO (08:50)
[2024-02-05] MEDS: OLANZapine 10 MG TABLET PO (08:50)
[2024-02-05] MEDS: Sevelamer Carbonate Powder 800 MG POWD.PACK 2400 MG PO ×3 (08:50→18:24)
[2024-02-05] MEDS: VerapamiL HCL SR 180 MG TABLET.ER PO (08:50)
[2024-02-05] MEDS: Valsartan 160 MG TABLET PO (08:50)
[2024-02-05] MEDS: Cinacalcet HCl 30 MG TABLET 90 MG PO (08:51)
--- NOTE | 2024-02-05 09:18 | P.PNPSI_ITS ---
Subjective Subjective Date of Service: 02/05/24 Reason For Visit: Schizophrenia, unspecified Subjective Notes: Conditional Voluntary Interim History: Reviewed with Dr. Redd. Pt continues on 1:1 safety checks. Per nursing staff, pt was making inappropriate sexual comments towards staff and making kiss faces. When T/W asked about reported behaviors; pt denied this. guarded. Pt reports feeling okay ; pt stated, I'm trying to take it day by day to see how I feel. Today I feel okay. I'm not feeding you any bullshit . pt denies SI/HI/VH/AH. Plan to meet with patient and clinical social work therapist tomorrow to begin discharge planning. Medication Compliance: Yes Side effects from medications: No Attending Groups: No Review of Systems Constitutional: Reports as per HPI Eyes: Reports as per HPI Reports as per HPI Cardiovascular: Reports as per HPI Respiratory: Reports as per HPI Gastrointestinal: Reports as per HPI Genitourinary: Reports as per HPI Musculoskeletal: Reports as per HPI Skin/Breast: Reports as per HPI Reports as per HPI Psychiatric: Reports as per HPI Endocrine: Reports as per HPI Hematologic/Lymphatic: Reports as per HPI Allergic/Immunologic: Reports as per HPI Mental Status Exam Mental Status Exam Narrative: Pt is alert and oriented; behavior is cooperative and calm,guarded; mood is described as okay ; eye contact appropriate; Speech is normal rate, volume and prosody and not pressured; thought process is organized; Thought content is on tx; denies SI/HI/VH/AH. Diagnostics Vital Signs (24Hr): Vital Signs - 24 hr 02/04/24 14:05 02/04/24 20:35 02/05/24 06:00 Temperature 98.3 F 98.7 F Pulse Rate 89 87 80 Respiratory Rate 17 18 Blood Pressure 181/96 H 160/93 H 179/95 H Pulse Oximetry 97 98 Oxygen Delivery Method Room Air Room Air BMI result Body Mass Index 35.4 Labs 02/02/24 11:12 Medications Medications Current Medications Acetaminophen (Acetaminophen 325 Mg Tablet) 650 mg PO Q6H PRN PRN Reason: Headache/Pain Mild Scale (1-3) Al Hydroxide/Mg Hydroxide (Magnesium Hydrox/Alum Hydrox 30 Ml Oral.Susp) 30 ml PO Q6H PRN PRN Reason: Heartburn/Nausea Cinacalcet (Cinacalcet Hcl 30 Mg Tablet) 90 mg PO DAILY [facility] Last Admin: 02/05/24 08:51 Dose: 90 mg Clonidine HCl (Clonidine Hcl 0.1 Mg Tablet) 0.1 mg PO BID [facility]; Protocol Last Admin: 02/05/24 08:50 Dose: 0.1 mg Epoetin Jorge Luis-epbx (Epoetin Jorge Luis-Epbx 3,000 Unit/Ml Vial) 2,500 unit SUBCUT MoWeFr@0900 [facility] Last Admin: 02/04/24 14:13 Dose: Not Given Guaifenesin (Guaifenesin 100 Mg/5 Ml Liquid) 5 ml PO Q6H PRN PRN Reason: Cough Last Admin: 02/02/24 22:39 Dose: 5 ml Hydroxyzine HCl (Hydroxyzine Hcl 25 Mg Tablet) 25 mg PO Q6H PRN PRN Reason: Anxiety Last Admin: 02/05/24 08:50 Dose: 25 mg Labetalol HCl (Labetalol Hcl 100 Mg Tablet) 100 mg PO BID [facility]; Protocol Last Admin: 02/05/24 08:50 Dose: 100 mg Lidocaine HCl (Lidocaine Hcl 1 % Mpf 2 Ml Vial) 0.5 ml SUBCUT MOWEFR@1645 [facility] Last Admin: 02/04/24 19:05 Dose: Not Given Magnesium Hydroxide (Milk Of Magnesia 30 Ml Oral.Susp) 30 ml PO DAILY PRN PRN Reason: Constipation Nicotine Polacrilex (Nicotine Polacrilex 2 Mg Gum) 4 mg BUCCAL Q2H PRN PRN Reason: Nicotine Cravings Last Admin: 02/05/24 08:51 Dose: 4 mg Olanzapine (Olanzapine 10 Mg Tablet) 10 mg PO DAILY [facility] Last Admin: 02/05/24 08:50 Dose: 10 mg Olanzapine (Olanzapine 7.5 Mg Tablet) 15 mg PO BEDTIME [facility] Last Admin: 02/04/24 20:45 Dose: 15 mg Sevelamer Carbonate (Sevelamer Carbonate Powder 800 Mg Powd.Pack) 2,400 mg PO TIDWM [facility] Last Admin: 02/05/24 08:50 Dose: 2,400 mg Trazodone HCl (Trazodone Hcl 50 Mg Tablet) 50 mg PO BEDTIME MRX1 PRN PRN Reason: Insomnia Valsartan (Valsartan 160 Mg Tablet) 160 mg PO DAILY [facility] Last Admin: 02/05/24 08:50 Dose: 160 mg Verapamil HCl (Verapamil Hcl Sr 180 Mg Tablet.Er) 180 mg PO DAILY [facility]; Protocol Last Admin: 02/05/24 08:50 Dose: 180 mg Allergies Allergies Allergy/AdvReac Type Severity Reaction Status Date / Time fish derived [fish] Allergy Unknown Verified 02/01/24 16:49 haloperidol [From Haldol] Allergy Unknown Verified 02/01/24 16:49 peanut Allergy Unknown Verified 02/01/24 16:49 promethazine [From Phenergan] Allergy Unknown Verified 02/01/24 16:49 shellfish derived Allergy Unknown Verified 02/01/24 16:49 Assessment & Plan Assessment & Plan (1) Schizoaffective disorder: Status: Acute Code(s): F25.9 - Schizoaffective disorder, unspecified (2) End stage renal disease on dialysis: Status: Acute Code(s): N18.6 - End stage renal disease; Z99.2 - Dependence on renal dialysis Plan Direct admission from a medical floor at [facility] in [facility], following unclear overdose on 01/15/2024. Established dialysis patient on Wednesdays and Fridays. It appears has been off psychotropic medications as per collateral from paperwork. Does appear to be benefiting from adjustment in olanzapine dose to 5 mg morning and 15 mg at bedtime. Given same will not make any changes and patient also prefers this. We will continue dialysis on Wednesdays and Fridays. 02/02: increase olanzapine to 10mg am and maintain 15g bedtime 02/03:Pt continues on 1:1 safety checks. Pt received dialysis today. Pt reports feeling depressed ; pt stated, I overdosed on cleaning products because I miss my kids. It's been a while since I've seen them. I was taking Zyprexa before but then I started self medicating. I want to stay alive for my kids and the rest of my family . pt denies SI/HI/VH/AH. 02/04: Per nursing staff, pt was making inappropriate sexual comments towards staff and making kiss faces. When T/W asked about reported behaviors; pt denied this. guarded. Pt reports feeling okay ; pt stated, I'm trying to take it day by day to see how I feel. Today I feel okay. I'm not feeding you any bullshit . pt denies SI/HI/VH/AH. Plan to meet with patient and clinical social work therapist tomorrow to begin discharge planning. Patient educated on: diagnosis and medication risk/benefits Informed Consent: understands Reason for continued inpatient stay Substantial Risk for: med/psych decompensation Time Spent With Patient Time: Total time managing care of this patient today _20___ minutes.
--- NOTE | 2024-02-05 21:23 | PC.NURSE ---
Nurse attempted to get Vital signs on Luis Alberto, patient refused. Nurse asked if patient was planning on taking medications this evening. patient reported No . Patient then stood up and postured toward nurse and then said Do you take any medications . Nurse replied that he did. Patient told nurse to leave. Nurse complied.
[2024-02-05] MEDS: OLANZapine 7.5 MG TABLET 15 MG PO (21:55)
--- NOTE | 2024-02-05 23:12 | PC.NURSE ---
Later in the shift, patient was more agreeable to taking his scheduled medications. No posturing toward nurse at this time.
[2024-02-06 06:00] VITALS: BP 169/92; PULSE 79; RESP 16; O2SAT 99
[2024-02-06] MEDS: Nicotine Polacrilex 2 MG GUM 4 MG BUCCAL ×3 (06:05→21:51)
--- NOTE | 2024-02-06 07:54 | P.PNPSI_ITS ---
Subjective Subjective Date of Service: 02/06/24 Reason For Visit: Schizophrenia, unspecified Subjective Notes: Conditional Voluntary Interim History: Reviewed with Dr. Redd. Pt continues on 1:1 safety checks. aircraft worker, Tiana Sun, present for assessment. Pt reports feeling alright today; he denies feeling anxious or depressed . When asked about suicidal ideation and behavior prior to admission, pt stated, I feel alright. I never wanted to kill myself. I was trying to clean out my insides . Patient did not elaborate more on what he meant by cleaning out his insides . Pt signed release of information for his outpatient psychiatric provider. T/W brought up patient's reported inappropriate behavior, pt stated, I was being sarcastic. You asked me about suicidal thoughts but you didn't ask me about the 'H' word. Heterosexual. I don't like gang bangs . Pt reports he will no longer make inappropriate comments while on the unit. pt denies SI/HI/VH/AH. Medication Compliance: Yes Side effects from medications: No Attending Groups: No Review of Systems Constitutional: Reports as per HPI Eyes: Reports as per HPI Reports as per HPI Cardiovascular: Reports as per HPI Respiratory: Reports as per HPI Gastrointestinal: Reports as per HPI Genitourinary: Reports as per HPI Musculoskeletal: Reports as per HPI Skin/Breast: Reports as per HPI Reports as per HPI Psychiatric: Reports as per HPI Endocrine: Reports as per HPI Hematologic/Lymphatic: Reports as per HPI Allergic/Immunologic: Reports as per HPI Mental Status Exam Mental Status Exam Narrative: Pt is alert and oriented; behavior is cooperative and calm,guarded; mood is described as alright ; eye contact appropriate; Speech is normal rate, volume and prosody and not pressured; thought process is organized; responding with bizarre responses at times to questions, unclear if this is from schizoaffective d/o or behavioral(smiles when he makes bizarre statements); denies SI/HI/VH/AH. Diagnostics Vital Signs (24Hr): Vital Signs - 24 hr 02/06/24 06:00 Pulse Rate 79 Respiratory Rate 16 Blood Pressure 169/92 H Pulse Oximetry 99 Oxygen Delivery Method Room Air BMI result Body Mass Index 35.4 Labs 02/02/24 11:12 Medications Medications Current Medications Acetaminophen (Acetaminophen 325 Mg Tablet) 650 mg PO Q6H PRN PRN Reason: Headache/Pain Mild Scale (1-3) Al Hydroxide/Mg Hydroxide (Magnesium Hydrox/Alum Hydrox 30 Ml Oral.Susp) 30 ml PO Q6H PRN PRN Reason: Heartburn/Nausea Cinacalcet (Cinacalcet Hcl 30 Mg Tablet) 90 mg PO DAILY [facility] Last Admin: 02/05/24 08:51 Dose: 90 mg Clonidine HCl (Clonidine Hcl 0.1 Mg Tablet) 0.1 mg PO BID [facility]; Protocol Last Admin: 02/05/24 21:55 Dose: 0.1 mg Epoetin Jorge Luis-epbx (Epoetin Jorge Luis-Epbx 3,000 Unit/Ml Vial) 2,500 unit SUBCUT MoWeFr@0900 [facility] Last Admin: 02/04/24 14:13 Dose: Not Given Guaifenesin (Guaifenesin 100 Mg/5 Ml Liquid) 5 ml PO Q6H PRN PRN Reason: Cough Last Admin: 02/02/24 22:39 Dose: 5 ml Hydroxyzine HCl (Hydroxyzine Hcl 25 Mg Tablet) 25 mg PO Q6H PRN PRN Reason: Anxiety Last Admin: 02/05/24 08:50 Dose: 25 mg Labetalol HCl (Labetalol Hcl 100 Mg Tablet) 100 mg PO BID [facility]; Protocol Last Admin: 02/05/24 21:55 Dose: 100 mg Lidocaine HCl (Lidocaine Hcl 1 % Mpf 2 Ml Vial) 0.5 ml SUBCUT MOWEFR@1645 [facility] Last Admin: 02/04/24 19:05 Dose: Not Given Magnesium Hydroxide (Milk Of Magnesia 30 Ml Oral.Susp) 30 ml PO DAILY PRN PRN Reason: Constipation Nicotine Polacrilex (Nicotine Polacrilex 2 Mg Gum) 4 mg BUCCAL Q2H PRN PRN Reason: Nicotine Cravings Last Admin: 02/06/24 06:05 Dose: 4 mg Olanzapine (Olanzapine 10 Mg Tablet) 10 mg PO DAILY [facility] Last Admin: 02/05/24 08:50 Dose: 10 mg Olanzapine (Olanzapine 7.5 Mg Tablet) 15 mg PO BEDTIME [facility] Last Admin: 02/05/24 21:55 Dose: 15 mg Sevelamer Carbonate (Sevelamer Carbonate Powder 800 Mg Powd.Pack) 2,400 mg PO TIDWM [facility] Last Admin: 02/05/24 18:24 Dose: 2,400 mg Trazodone HCl (Trazodone Hcl 50 Mg Tablet) 50 mg PO BEDTIME MRX1 PRN PRN Reason: Insomnia Valsartan (Valsartan 160 Mg Tablet) 160 mg PO DAILY [facility] Last Admin: 02/05/24 08:50 Dose: 160 mg Verapamil HCl (Verapamil Hcl Sr 180 Mg Tablet.Er) 180 mg PO DAILY [facility]; Protocol Last Admin: 02/05/24 08:50 Dose: 180 mg Allergies Allergies Allergy/AdvReac Type Severity Reaction Status Date / Time fish derived [fish] Allergy Unknown Verified 02/01/24 16:49 haloperidol [From Haldol] Allergy Unknown Verified 02/01/24 16:49 peanut Allergy Unknown Verified 02/01/24 16:49 promethazine [From Phenergan] Allergy Unknown Verified 02/01/24 16:49 shellfish derived Allergy Unknown Verified 02/01/24 16:49 Assessment & Plan Assessment & Plan (1) Schizoaffective disorder: Status: Acute Code(s): F25.9 - Schizoaffective disorder, unspecified (2) End stage renal disease on dialysis: Status: Acute Code(s): N18.6 - End stage renal disease; Z99.2 - Dependence on renal dialysis Plan Direct admission from a medical floor at [facility] in [facility], following unclear overdose on 01/15/2024. Established dialysis patient on Wednesdays and Fridays. It appears has been off psychotropic medications as per collateral from paperwork. Does appear to be benefiting from adjustment in olanzapine dose to 5 mg morning and 15 mg at bedtime. Given same will not make any changes and patient also prefers this. We will continue dialysis on Wednesdays and Fridays. 02/02: increase olanzapine to 10mg am and maintain 15g bedtime 02/03:Pt continues on 1:1 safety checks. Pt received dialysis today. Pt reports feeling depressed ; pt stated, I overdosed on cleaning products because I miss my kids. It's been a while since I've seen them. I was taking Zyprexa before but then I started self medicating. I want to stay alive for my kids and the rest of my family . pt denies SI/HI/VH/AH. 02/04: Per nursing staff, pt was making inappropriate sexual comments towards staff and making kiss faces. When T/W asked about reported behaviors; pt denied this. guarded. Pt reports feeling okay ; pt stated, I'm trying to take it day by day to see how I feel. Today I feel okay. I'm not feeding you any bullshit . pt denies SI/HI/VH/AH. Plan to meet with patient and social media project manager tomorrow to begin discharge planning. 02/05: aircraft worker, Tiana Sun, present for assessment. Pt reports feeling alright today; he denies feeling anxious or depressed . When asked about suicidal ideation and behavior prior to admission, pt stated, I feel alright. I never wanted to kill myself. I was trying to clean out my insides . Patient did not elaborate more on what he meant by cleaning out his insides . Pt signed release of information for his outpatient psychiatric provider. T/W brought up patient's reported inappropriate behavior, pt stated, I was being sarcastic. You asked me about suicidal thoughts but you didn't ask me about the 'H' word. Heterosexual. I don't like gang bangs . Pt reports he will no longer make inappropriate comments while on the unit. pt denies SI/HI/VH/AH. Patient educated on: diagnosis, medication risk/benefits and therapeutic strategies Informed Consent: understands Reason for continued inpatient stay Substantial Risk for: med/psych decompensation Time Spent With Patient Time: Total time managing care of this patient today _30___ minutes.
[2024-02-06] MEDS: Cinacalcet HCl 30 MG TABLET 90 MG PO (10:32)
[2024-02-06] MEDS: cloNIDine HCL 0.1 MG TABLET PO ×2 (10:32→20:00)
[2024-02-06] MEDS: Valsartan 160 MG TABLET PO (10:32)
[2024-02-06] MEDS: VerapamiL HCL SR 180 MG TABLET.ER PO (10:32)
[2024-02-06] MEDS: OLANZapine 10 MG TABLET PO (10:32)
[2024-02-06] MEDS: Labetalol HCL 100 MG TABLET PO ×2 (10:33→20:00)
--- NOTE | 2024-02-06 18:31 | P.PNNP_ITS ---
Subjective Subjective Date of Service: 02/06/24 Interval history: Seen on HD this AM in the dialysis unit. D/W HD RN. Maliha was present with patient Physical Exam 2 Vital Signs: Vital Signs: Last Vital Signs Temp 98.7 F 02/05/24 06:00 Pulse 79 02/06/24 06:00 Resp 16 02/06/24 06:00 BP 169/92 H 02/06/24 06:00 Pulse Ox 99 02/06/24 06:00 O2 Del Method Room Air 02/06/24 06:00 BMI result Body Mass Index 35.4 Const: General: comfortable and no acute distress HEENT: Head: Yes normocephalic Mouth: Normal oral and palatal mucosa present Eyes: EOM: EOMs intact bilaterally Neck: Neck: Yes supple Resp: Auscultation: clear to auscultation bilaterally Cardio: Jugular venous distension: no JVD Rate: regular rate GI: Palpation (GI): Soft to palpation Auscultation: normal bowel sounds : General: Yes no CVA tenderness Back/Spine/Pelvis: Back: no CVA tenderness Skin: General skin exam: no rashes or lesions noted Neuro: General: moves all extremities Extrem: General: Yes no pedal edema Objective Data Labs 02/02/24 11:12 Procedures Date of Service Date of Service: 02/06/24 Assessment & Plan Assessment and plan (1) End stage renal disease on dialysis: Status: Acute Plan 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 Clinically no signs or symptoms of uremia Seen on HD. Tolerating HD well Shall C/W HD on Fridays Shall continue to optimize volume status on HD Low-potassium diet; Continue cinacalcet Continue with rest of current supportive management
[2024-02-06 19:55] VITALS: BP 142/74; PULSE 91; RESP 18; TEMP 38.3; O2SAT 98
[2024-02-06] MEDS: OLANZapine 7.5 MG TABLET 15 MG PO (20:01)
[2024-02-07 08:43] VITALS: BP 174/97; PULSE 82; RESP 16; TEMP 36.8; O2SAT 98
--- NOTE | 2024-02-07 09:10 | PC.NURSE ---
At approximately 0900, pt was found with CVC in his hand. Pt had pulled the catheter out on his own. No active bleeding noted. Pressure dressing applied by RN. Catheter tip is intact. Will monitor site for bleeding. Medicine notified. Will consult with nephrology re dialysis plan. Pt does have an AV fistula in his rt arm with strong + bruit/thrill.
[2024-02-07] MEDS: cloNIDine HCL 0.1 MG TABLET PO (09:13)
[2024-02-07] MEDS: Cinacalcet HCl 30 MG TABLET 90 MG PO (09:15)
[2024-02-07] MEDS: OLANZapine 10 MG TABLET PO (09:16)
[2024-02-07] MEDS: Labetalol HCL 100 MG TABLET PO (09:17)
--- NOTE | 2024-02-07 13:02 | PM.PNNEP ---
Subjective Subjective Date of Service: 02/07/24 Interval history: Events noted. He pulled out the PermCath. 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 Clinically no signs or symptoms of uremia He pulled out PermCath. I spoke to his admitting office escort in [place]. Apparently he has pulled out his catheter 3 times and gets very aggressive. AVF was inserted in [facility]. It has infilterated and waiting for a fistulogram HE has been refusing to go for one. patient was very rude and he wanted to get his discharge However if the patient is still inpatient tomorrow we will attempt to use AV fistula - if he allows us IF not, he would need a permcath Time Spent With Patient Time: Total time managing care of this patient today ____ minutes.
--- NOTE | 2024-02-07 13:06 | P.PNPSI_ITS ---
Subjective Subjective Reason For Visit: Schizophrenia, unspecified Diagnostics Vital Signs (24Hr): Vital Signs - 24 hr 02/06/24 19:55 02/07/24 08:43 Temperature 100.9 F H 98.2 F Pulse Rate 91 82 Respiratory Rate 18 16 Blood Pressure 142/74 H 174/97 H Pulse Oximetry 98 98 Oxygen Delivery Method Room Air Room Air BMI result Body Mass Index 35.4 Labs 02/02/24 11:12 Medications Medications Current Medications Acetaminophen (Acetaminophen 325 Mg Tablet) 650 mg PO Q6H PRN PRN Reason: Headache/Pain Mild Scale (1-3) Al Hydroxide/Mg Hydroxide (Magnesium Hydrox/Alum Hydrox 30 Ml Oral.Susp) 30 ml PO Q6H PRN PRN Reason: Heartburn/Nausea Cinacalcet (Cinacalcet Hcl 30 Mg Tablet) 90 mg PO DAILY [facility] Last Admin: 02/07/24 09:15 Dose: 90 mg Clonidine HCl (Clonidine Hcl 0.1 Mg Tablet) 0.1 mg PO BID [facility]; Protocol Last Admin: 02/07/24 09:13 Dose: 0.1 mg Epoetin Jorge Luis-epbx (Epoetin Jorge Luis-Epbx 3,000 Unit/Ml Vial) 2,500 unit SUBCUT MoWeFr@0900 [facility] Last Admin: 02/06/24 10:51 Dose: 2,500 unit Guaifenesin (Guaifenesin 100 Mg/5 Ml Liquid) 5 ml PO Q6H PRN PRN Reason: Cough Last Admin: 02/02/24 22:39 Dose: 5 ml Hydroxyzine HCl (Hydroxyzine Hcl 25 Mg Tablet) 25 mg PO Q6H PRN PRN Reason: Anxiety Last Admin: 02/05/24 08:50 Dose: 25 mg Labetalol HCl (Labetalol Hcl 100 Mg Tablet) 100 mg PO BID [facility]; Protocol Last Admin: 02/07/24 09:17 Dose: 100 mg Lidocaine HCl (Lidocaine Hcl 1 % Mpf 2 Ml Vial) 0.5 ml SUBCUT MOWEFR@1645 [facility] Last Admin: 02/06/24 18:07 Dose: Not Given Magnesium Hydroxide (Milk Of Magnesia 30 Ml Oral.Susp) 30 ml PO DAILY PRN PRN Reason: Constipation Nicotine Polacrilex (Nicotine Polacrilex 2 Mg Gum) 4 mg BUCCAL Q2H PRN PRN Reason: Nicotine Cravings Last Admin: 02/06/24 21:51 Dose: 4 mg Olanzapine (Olanzapine 10 Mg Tablet) 10 mg PO DAILY [facility] Last Admin: 02/07/24 09:16 Dose: 10 mg Olanzapine (Olanzapine 7.5 Mg Tablet) 15 mg PO BEDTIME [facility] Last Admin: 02/06/24 20:01 Dose: 15 mg Sevelamer Carbonate (Sevelamer Carbonate Powder 800 Mg Powd.Pack) 2,400 mg PO TIDWM [facility] Last Admin: 02/07/24 12:23 Dose: Not Given Trazodone HCl (Trazodone Hcl 50 Mg Tablet) 50 mg PO BEDTIME MRX1 PRN PRN Reason: Insomnia Valsartan (Valsartan 160 Mg Tablet) 160 mg PO DAILY [facility] Last Admin: 02/07/24 09:18 Dose: Not Given Verapamil HCl (Verapamil Hcl Sr 180 Mg Tablet.Er) 180 mg PO DAILY [facility]; Protocol Last Admin: 02/07/24 09:17 Dose: Not Given Allergies Allergies Allergy/AdvReac Type Severity Reaction Status Date / Time fish derived [fish] Allergy Unknown Verified 02/01/24 16:49 haloperidol [From Haldol] Allergy Unknown Verified 02/01/24 16:49 peanut Allergy Unknown Verified 02/01/24 16:49 promethazine [From Phenergan] Allergy Unknown Verified 02/01/24 16:49 shellfish derived Allergy Unknown Verified 02/01/24 16:49 Assessment & Plan Assessment & Plan (1) End stage renal disease on dialysis: Status: Acute Code(s): N18.6 - End stage renal disease; Z99.2 - Dependence on renal dialysis Plan 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 Clinically no signs or symptoms of uremia He pulled out PermCath. Has an AV fistula in the left arm. This seems mature. patient was very rude and he wanted to get his discharge However if the patient is still inpatient tomorrow we will attempt to use AV fistula. Time Spent With Patient Time: Total time managing care of this patient today ____ minutes.
[2024-02-07] MEDS: Nicotine Polacrilex 2 MG GUM 4 MG BUCCAL (13:09)
--- NOTE | 2024-02-07 17:18 | PM.PSYDC ---
DS: Providers Provider Date of Service: 02/07/24 Date of admission: 02/01/24 16:09 Date of discharge: 02/07/24 Primary care physician: Unknown Physician Attending physician on admission: Josh Busch Consults: 02/01/24 16:58 Consult to Hospitalist Routine Comment: Consulting Provider: Hospitalist Reason For Exam: new admit, H&P 02/01/24 17:09 Consult to Nephrology Routine Consulting Provider: [facility] Reason for consultation: pt with ESRD needs dialysis Has provider been notified: No 02/07/24 09:17 Consult to Nephrology Stat Consulting Provider: [facility] Reason for consultation: pericath out Attending physician on discharge: Bran Redd Discharging clinician: Lian Lopez DS: Diagnosis Discharge Diagnosis (1) End stage renal disease on dialysis: Status: Acute DS: Medications Discharge Medications Home Medications: Home Medications ?Medication ?Instructions ?Recorded ?Confirmed cinacalcet 1 tab PO DAILY 02/01/24 02/01/24 clonidine HCl 0.3 mg tablet 0.3 mg PO BID 02/01/24 02/01/24 epoetin ceci-epbx 10,000 unit/mL 10,000 unit subcut 3XW 02/01/24 02/01/24 injection solution irbesartan 300 mg tablet 300 mg PO DAILY 02/01/24 02/01/24 labetalol 100 mg tablet 100 mg PO BID 02/01/24 02/01/24 sevelamer carbonate 2.4 gram oral 2.4 g PO TID 02/01/24 02/01/24 powder packet (Renvela) verapamil 180 mg tablet,extended 180 mg PO DAILY 02/01/24 02/01/24 release Previous Rx's ?Medication ?Instructions ?Recorded olanzapine 10 mg tablet 10 mg PO DAILY 30 days #30 tabs 02/07/24 olanzapine 15 mg tablet 15 mg PO BEDTIME 30 days #30 tabs 02/07/24 Mental Status Exam Mental Status Exam Narrative: Pt is alert and oriented; behavior is irritable; dressed in casual attire; mood is described as good ; eye contact appropriate; Speech is normal rate, volume and prosody and not pressured; thought process is organized; Thought content is on discharge; denies SI/HI/VH/AH. Data Data Completed and Pending Completed studies during hospitalization [Text1]: 04/06/24 11:12 Sodium 134 L Potassium 5.8 H Chloride 93 L Carbon Dioxide 26 Anion Gap 21 H BUN 48 H Creatinine 13.34 H* Estim Creat Clear Calc 9.3 Estimated GFR 4 Fasting Glucose 108 H Calcium 9.5 Total Bilirubin 0.4 AST 19 ALT 11 Alkaline Phosphatase 81 Total Protein 7.4 Albumin 4.3 Triglycerides 129 Cholesterol 175 LDL Cholesterol, Calc 116 H HDL Cholesterol 34 L DS: Summary Hospital Course Hospital Course: Direct admission from [facility] in [place]. As per Dr. Redd note 02/01/24: Patient accepted in transfer from [facility]. Doc to doc completed records reviewed. The patient is status post suicide attempt swallowing bleach no clear GI consequences from this the patient has been eating. The patient has end-stage renal disease has been receiving dialysis through port not fistula labs ekg unremarkable. The patient has been cooperative with dialysis at [facility] Patient has reported history of psychosis and paranoia question PTSD status post severe suicide attempt requires inpatient psychiatric care. Prior to transfer I did contact Nephrology who states they are able to provide dialysis care as required Paperwork from [facility] shows patient presented to the emergency room through 911 on 01/15/2024. There were 3 different accounts from patient, once stating he took labetalol and detergent ingestion, a 2nd stating clonidine and bleach ingestion, then a 3rd stating he drank alcohol and somebody had hypnotized him. Collateral from father at [facility], reported patient had relapsed with alcohol around 6 months ago, off medications, more paranoid, believes he may have called 911 himself. Patient was on the medical floor and received routine scheduled dialysis which she has been on for the last 3 years, while awaiting inpatient psychiatry bed. Olanzapine was increased during that medical floor stay from 10 mg daily to a total daily dose of 20 mg. Patient reports to song writer today that he has been feeling depressed for years and that things got worse since new 's Brenda when he started smoking more marijuana and getting paranoid. Reported prior to admission low energy, no motivation, poor sleep, hopelessness. Reported that he overdosed on pills and cleaning supplies impulsively and also drank some alcohol. Reported that he told a friend who called 911. is adamant it was not a suicide attempt and was self harm/cry for help. reports does feel paranoid at times that family members are trying to hurt him and also hallucinates hearing rap music and things that are normally on a television. Reports that Zyprexa is helpful and these have become less intense. Happy regarding current medication regimen of Zyprexa 5 mg morning and 50 mg at bedtime. Reluctant to make any current changes. During hospital course, Direct admission from a medical floor at [facility] in [facility], following unclear overdose on 01/15/2024. Established dialysis patient on Wednesdays and Fridays. It appears has been off psychotropic medications as per collateral from paperwork. Does appear to be benefiting from adjustment in olanzapine dose to 5 mg morning and 15 mg at bedtime. Given same will not make any changes and patient also prefers this. We will continue dialysis on Wednesdays and Fridays. increase olanzapine to 10mg am and maintain 15g bedtime Pt continues on 1:1 safety checks. Pt received dialysis today. Pt reports feeling depressed ; pt stated, I overdosed on cleaning products because I miss my kids. It's been a while since I've seen them. I was taking Zyprexa before but then I started self medicating. I want to stay alive for my kids and the rest of my family . pt denies SI/HI/VH/AH. Per nursing staff, pt was making inappropriate sexual comments towards staff and making kiss faces. When T/W asked about reported behaviors; pt denied this. guarded. Pt reports feeling okay ; pt stated, I'm trying to take it day by day to see how I feel. Today I feel okay. I'm not feeding you any bullshit . pt denies SI/HI/VH/AH. Plan to meet with patient and social media content manager tomorrow to begin discharge planning. mold loft worker, Tiana Sun, present for assessment. Pt reports feeling alright today; he denies feeling anxious or depressed . When asked about suicidal ideation and behavior prior to admission, pt stated, I feel alright. I never wanted to kill myself. I was trying to clean out my insides . Patient did not elaborate more on what he meant by cleaning out his insides . Pt signed release of information for his outpatient psychiatric provider. T/W brought up patient's reported inappropriate behavior, pt stated, I was being sarcastic. You asked me about suicidal thoughts but you didn't ask me about the 'H' word. Heterosexual. I don't like gang bangs . Pt reports he will no longer make inappropriate comments while on the unit. pt denies SI/HI/VH/AH. 02/06: RN reported pt pulled out permicath this morning. Stat order placed for nephrology consult. Pt refusing to have new cath placed. Per Dr. 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 Clinically no signs or symptoms of uremia He pulled out PermCath. I spoke to his statistical developer in [place]. Apparently he has pulled out his catheter 3 times and gets very aggressive. AVF was inserted in [facility]. It has infilterated and waiting for a fistulogram HE has been refusing to go for one. patient was very rude and he wanted to get his discharge However if the patient is still inpatient tomorrow we will attempt to use AV fistula - if he allows us IF not, he would need a permcath. Pt demanding to be discharged. Met with patient on unit office with state assessed properties directorair director for [facility], Ashwin Healy, mold loft worker, Tiana Sun and RN, Brett Villa, present. Pt presents future oriented, he is irritable and states he wants to return home and follow up with outpatient providers. Pt reports he has made follow up appointments with his outpatient psychiatrist and therapist; he has dialysis scheduled for tomorrow morning. mold loft worker, Tiana Sun, was able to get in touch with patient's brother (please see notes); per social work, pt's brother stated, he has no concern regarding patient's safety. Per brother, pt has hx of making things up to get his medications changed . Pt denies SI/HI/VH/AH. Pt reports he will either call 911, go to nearest ER or crisis if feeling unsafe. Time spent discussing smoking cessation with patient: 3 to 10 minutes Status at Discharge Cognitive/behavioral status at discharge: Patient was interviewed prior to discharge and found to be fully oriented and without any SI or HI. Patient has insight and demonstrates good judgment in terms of wanting to pursue treatment. Patient has a safety plan that includes presenting to the closest ER or calling 911 if feeling unsafe. Functional status at discharge: independent ambulation Overall status at discharge: patient is back to baseline Time Spent with Patient Time attestation: Total time managing care of this patient today _60___ minutes. Time spent: Greater than 30 minutes Discharge Plan Discharge Anticipated Discharge Date/Time: 02/07/24 16:00 Patient Disposition: Home, Self-Care Discharge Diagnosis: Schizoaffective d/o Referrals: Physician,Unknown J [Primary Care Provider] - 1 Week Discharge Medications: New olanzapine 10 mg Tablet 10 mg PO DAILY 30 Days Qty: 30 0RF olanzapine 15 mg tablet 15 mg PO BEDTIME 30 Days Qty: 30 0RF Continued clonidine HCl 0.3 mg Tablet 0.3 mg PO BID irbesartan 300 mg Tablet 300 mg PO DAILY cinacalcet 90 MG 1 tab PO DAILY verapamil 180 mg Tablet Extended Release 180 mg PO DAILY labetalol 100 mg Tablet 100 mg PO BID sevelamer carbonate [Renvela] 2.4 gram Powder In Packet 2.4 g PO TID Rx Instructions: must administer with a meal/food epoetin ceci-epbx 10,000 unit/mL Solution 10,000 unit SUBCUT 3XW Discontinued olanzapine 5 mg Tablet 5 mg PO BID Discharge Orders: Discharge Order (Routine); Ordered 02/07/24 Ordered By: Lian Lopez Diet: Regular diet Activity on Discharge: As tolerated Stand Alone Forms: Patient Portal Discharge page, Community Support Print Language: Mexican Care Plan Goals: Maintain mood and safe behaviors Take medications as prescribed Practice coping skills Continue with outpatient providers and reach out to them as needed Health Concerns: Mood stability and behaviors Follow up with outpatient providers regarding renal disease Plan of Treatment: Follow up with your PCP, psychiatric provider and other outpatient providers regarding above concerns Take medications as prescribed Assessment: Patient was interviewed prior to discharge and found to be fully oriented and without any SI or HI. Patient has insight and demonstrates good judgment in terms of wanting to pursue treatment. Patient has a safety plan that includes presenting to the closest ER or calling 911 if feeling unsafe. Discharge Date/Time: 02/07/24 15:26
== END 2024-02-07 15:26 | disposition home or self-care (01) | DRG 750 ==
PROVIDERS: Admitting Provider Psychiatry & Neurology Psychiatry; Responsible Provider Registered Nurse; Visit Provider Psychiatry & Neurology Psychiatry
DX: F25.9 Schizoaffective disorder, unspecified (principal); I12.0 Hypertensive chronic kidney disease with stage 5 chronic kidney disease or end stage renal disease; Q61.3 Polycystic kidney, unspecified; N25.81 Secondary hyperparathyroidism of renal origin; R45.851 Suicidal ideations; E87.5 Hyperkalemia; N18.6 End stage renal disease; Z91.51 Personal history of suicidal behavior; Z99.2 Dependence on renal dialysis; Z87.891 Personal history of nicotine dependence; Z79.899 Other long term (current) drug therapy
CPT/HCPCS: 36415; 80053; 80061; 90999; 93005; Q5106

== ENCOUNTER → 2024-02-01 16:09 | Outpatient (BNV) | payer OTHER, SELFPAY | PROVIDERS: Admitting Provider Psychiatry & Neurology Psychiatry; Visit Provider Psychiatry & Neurology Psychiatry | DX: F25.1 Schizoaffective disorder, depressive type (principal); N18.6 End stage renal disease; Z99.2 Dependence on renal dialysis | CPT/HCPCS: 90792; 99231; 99232; 99239 ==

== ENCOUNTER → 2024-02-01 16:09 | Outpatient (BNV) | payer OTHER, SELFPAY | PROVIDERS: Admitting Provider Psychiatry & Neurology Psychiatry; Visit Provider Student in an Organized Health Care Education/Training Program | DX: N18.6 End stage renal disease (principal); Z99.2 Dependence on renal dialysis | CPT/HCPCS: 99222 ==

== ENCOUNTER → 2024-02-01 16:09 | Outpatient (BNV) | payer OTHER, SELFPAY | PROVIDERS: Admitting Provider Psychiatry & Neurology Psychiatry; Visit Provider Internal Medicine Nephrology | DX: N18.6 End stage renal disease (principal); Z99.2 Dependence on renal dialysis | CPT/HCPCS: 90935; 99223; 99231; 99499 ==